=== PATIENT | male | born 1995 | race Caucasian/White ===

== ENCOUNTER 2021-03-21 11:37 | Emergency (ER) | payer BC ==
[2021-03-21] MEDS ORDERED: Acetaminophen 325 MG Tab PO ONE (12:18)
--- NOTE | 2021-03-21 12:27 | EDM.PDOC ---
ED HPI GENERAL MEDICAL PROBLEM - General Chief Complaint: General Stated Complaint: FEVER Time Seen by Provider: 03/21/21 11:57 Source of Information: Reports: Patient History Limitations: Reports: No Limitations - History of Present Illness INITIAL COMMENTS - FREE TEXT/NARRATIVE: 25-year-old male presents the emergency department today with complaints of fever of 101.6 as well as a rash noted to bilateral inner forearms, abdomen and lower back. He does note that he did start to have a slight cough last evening. Denies any nausea, vomiting, headache, sore throat or diarrhea. States that he has been exposed to several coworkers who have been out sick and he suspects that the are positive for influenza A. States he is otherwise healthy and does not smoke. He has not had his Covid or influenza vaccine. Patient states he did take Xyzol for the rash per his providers recommendations. He denies any itching or burning noted from the rash. - Related Data Allergies Allergy/AdvReac Type Severity Reaction Status Date / Time pollen extracts Allergy Cough Verified 03/21/21 12:05 Home Meds: Home Meds Fluticasone/Salmeterol [Advair 100-50] 1 puff INH DAILY PRN 03/21/21 [History] Levocetirizine Dihydrochloride [Xyzal] 5 mg PO DAILY PRN 03/21/21 [History] Oseltamivir [Tamiflu] 75 mg PO BID #10 cap 03/21/21 [Rx] Past Medical History Respiratory History: Reports: Asthma - Past Surgical History HEENT Surgical History: Reports: Tonsillectomy ED ROS GENERAL - Review of Systems Review Of Systems: Comprehensive ROS is negative, except as noted in HPI. ED EXAM, GENERAL - Physical Exam Exam: See Below Exam Limited By: No Limitations General Appearance: Alert, WD/WN, No Apparent Distress Ears: Normal External Exam, Hearing Grossly Normal Nose: Normal Inspection Throat/Mouth: Normal Inspection, Normal Lips, Normal Voice, No Airway Compromise Head: Atraumatic, Normocephalic Neck: Normal Inspection, Supple Respiratory/Chest: No Respiratory Distress, Lungs Clear, Normal Breath Sounds, No Accessory Muscle Use, Chest Non-Tender Cardiovascular: Normal Peripheral Pulses, Regular Rate, Rhythm, No Edema, No Murmur Peripheral Pulses: 2+: Radial (L), Radial (R) GI/Abdominal: Normal Bowel Sounds, Soft, Non-Tender, No Distention (Male) Exam: Deferred Rectal (Males) Exam: Deferred Back Exam: Full Range of Motion, Other (Scattered papular rash noted to the patient's lower back) Extremities: Normal Range of Motion, Non-Tender, Normal Capillary Refill, Other (Scattered papular rash noted to bilateral inner forearms and inner upper arms) Neurological: Alert, Oriented, Normal Cognition Psychiatric: Normal Affect, Normal Mood Skin Exam: Warm, Dry, Intact, Normal Color, Rash (Scattered papular rash noted to abdomen, lower back, bilateral inner forearms bilateral upper inner arms) Lymphatic: No Adenopathy Course - Vital Signs Text/Narrative:: As stated above, patient presents with fever and a rash noted this morning. Full exam does reveal raised papular scattered rash noted to bilateral inner forearms, abdomen and lower back. As stated above, patient denies any pruritus or burning noted from the rash. Will dose the patient for influenza and Covid. Will also give him Tylenol 975 for low-grade temp of 99.9 noted in the ER this morning. Last Recorded V/S: Last Vital Signs Temp 99.6 F 03/21/21 12:31 Pulse 132 H 03/21/21 11:57 Resp 20 03/21/21 11:57 BP 126/77 03/21/21 11:57 Pulse Ox 97 03/21/21 11:57 - Orders/Labs/Meds Labs: Laboratory Tests 03/21/21 Range/Units 12:22 Influenza Type A RNA Positive H (NEGATIVE) Influenza Type B RNA Negative (NEGATIVE) SARS-CoV-2 RNA (AARTI) Negative (NEGATIVE) Meds: Medications Discontinued Medications Generic Name Dose Route Start Last Admin Trade Name [place] PRN Reason Stop Dose Admin Acetaminophen 975 mg 03/21/21 12:18 03/21/21 12:31 Acetaminophen 325 Mg Tab PO 03/21/21 12:19 975 mg NOW ONE Administration - Re-Assessments/Exams Free Text/Narrative Re-Assessment/Exam: 03/21/21 13:17 Patient tested positive for influenza A. Covid and influenza B tests are negative. Patient would like to receive Tamiflu. He will be discharged home and I will send a prescription to his pharmacy. He has also been instructed to quarantine for 10 days time. Departure - Departure Time of Disposition: 13:18 Disposition: Home, Self-Care 01 Condition: Good Clinical Impression: Influenza A - Discharge Information Prescriptions: Oseltamivir [Tamiflu] 75 mg PO BID #10 cap Instructions: Influenza, Adult, [id number] Referrals: Kylah Vitale, HOSPITALITY DIRECTOR [Primary Care Provider] - Forms: ED Department Discharge, ED Return to Work/School Form Additional Instructions: You were seen in the emergency department today with fever and rash. Suspect rash is likely due to the fever. Would not be concerned unless you develop airway swelling or shortness of breath. Begins to itch you may take Benadryl 50 mg every 6 hours as needed. May continue taking Xyzol as recommended by your provider. You were tested for Covid and influenza while in the emergency department today. Influenza A test did come back as positive. I have sent prescription to your pharmacy [facility] for Tamiflu 75 mg to be taken twice daily for 5 days. Go home and get plenty rest drink plenty of fluids. May take Tylenol 650 mg every 4 hours as needed for fever or discomfort or ibuprofen 600 mg every 6-8 hours as needed for fever or discomfort. Keep in mind that Tamiflu can cause stomach cramping and diarrhea. You also will need to quarantine for 10 days time. Sepsis Event Note (ED) - Evaluation Sepsis Screening Result: No Definite Risk - Focused Exam Vital Signs: Vital Signs Temp Temp Pulse Resp BP Pulse Ox 03/21/21 12:31 99.6 F 03/21/21 11:57 99.9 F 132 H 20 126/77 97
[2021-03-21 13:06] LABS: CORONAVIRUS COVID-19 NAA NEGATIVE (NEGATIVE)
== END 2021-03-21 13:40 | disposition home or self-care (01) ==
LOC: JD.ED 11:37
DX: J10.1 Influenza due to other identified influenza virus with other respiratory manifestations (principal); Z20.822 Contact with and (suspected) exposure to COVID-19; Z91.048 Other nonmedicinal substance allergy status
CPT/HCPCS: 0240U; 99283; A9270

== ENCOUNTER 2021-04-25 17:27 | Emergency (ER) | payer BC ==
[2021-04-25] MEDS ORDERED: Diphtheria,Pertussis(Acell),Tetanus Vaccine 0.5 ML Syringe IM ONE (18:02)
[2021-04-25] MEDS ORDERED: Lidocaine 1% 10 ML MDV INJECT ONE (18:02)
== END 2021-04-25 19:15 | disposition home or self-care (01) ==
LOC: JD.ED 17:27
DX: S61.213A Laceration without foreign body of left middle finger without damage to nail, initial encounter (principal); S61.217A Laceration without foreign body of left little finger without damage to nail, initial encounter; Z91.048 Other nonmedicinal substance allergy status; Z23 Encounter for immunization; W26.0XXA Contact with knife, initial encounter; Y99.0 Civilian activity done for income or pay
CPT/HCPCS: 12002; 90471; 90715; 99282-25; 99283

== ENCOUNTER 2024-03-28 08:19 | Emergency (ER) | payer BC ==
[2024-03-28] MEDS: Sodium Chloride 0.9% 1,000 ML IV STA (09:42)
[2024-03-28] MEDS: Ondansetron 4 MG/2 ML SDV IVPUSH ONE (09:42)
[2024-03-28] MEDS: Sodium Chloride 0.9% 10 ML Syringe FLUSH PRN (09:42)
[2024-03-28 09:49] LABS: BASOPHILS PERCENT AUTO 0.1 % (0.0-1.0); EOSINOPHILS PERCENT AUTO 0.2 % (0.0-6.0); HEMATOCRIT 53.6 % (42.0-52.0); IMMATURE GRAN ABSOLUTE AUTO 0.03 K/mm3 (0.00-0.05); IMMATURE GRAN PERCENT AUTO 0.3 % (0.0-0.4); LYMPHOCYTES ABSOLUTE AUTO 0.4 K/mm3 (1.0-4.8); LYMPHOCYTES PERCENT AUTO 3.3 % (24.0-44.0); MEAN CORPUSCULAR HEMOGLOBIN 29.6 pg (28.0-32.0); MEAN CORPUSCULAR HGB CONC 33.6 g/dl (32.0-36.0); MEAN PLATELET VOLUME 9.7 fl (9.4-12.4); MONOCYTES ABSOLUTE AUTO 0.3 K/mm3 (0.0-0.8); MONOCYTES PERCENT AUTO 2.7 % (0.0-8.0); NEUTROPHILS PERCENT AUTO 93.4 % (41.0-71.0); PLATELET COUNT,PLT 218 K/mm3 (150-400); RED BLOOD CELL COUNT 6.09 M/mm3 (4.52-5.90); WHITE BLOOD CELL COUNT,WBC 10.69 K/mm3 (3.9-11.3)
[2024-03-28 10:16] LABS: A/G RATIO 1.4 (1-2); ALBUMIN 4.6 g/dl (3.4-5.0); ANION GAP 16.4 (5-15); BILIRUBIN TOTAL 1.1 mg/dL (0.2-1.0); CALCIUM 9.3 mg/dL (8.5-10.1); EST CRCL DRUG DOSING (CG) 127.87 mL/min; POTASSIUM,K 4.4 mEq/L (3.5-5.1); PROTEIN TOTAL,TP 7.8 g/dl (6.4-8.2)
[2024-03-28 10:34] LABS: SLIDE REVIEW ABNORMAL SMEAR
== END 2024-03-28 11:33 | disposition home or self-care (01) ==
LOC: JD.ED 08:19
DX: A08.4 Viral intestinal infection, unspecified (principal); J45.909 Unspecified asthma, uncomplicated; Z90.89 Acquired absence of other organs; Z91.048 Other nonmedicinal substance allergy status; Z79.899 Other long term (current) drug therapy
CPT/HCPCS: 36415; 80053; 83690; 85025; 96361; 96374; 99284; J2405; J7030